=== PATIENT | male | born 1940 | race Two or more races ===

== ENCOUNTER 2021-10-18 20:32 | Emergency (ER) | payer OTHER ==
[~2021-10-18] VITALS: Ht 165.1 cm; Wt 77.1 kg
--- NOTE | 2021-10-18 20:55 | NUR ---
PT BIBRA C/O LEFT EYE BROW LACERATION. PT [id number] BREATHING EVENLY AND UNLABORED. PER PT, HE HAD BEEN DRINKING AND TRIPPED AND FELL, HITTING THE GROUND AND CUTTING HIS LEFT EYEBEOW. UPON ASSESSMENT, PT HAS THREE PARALLEL LACERATIONS ABOVE LEFT EYEBROW. PT ATTACHED TO MONITOR AND POX. PT GIVEN BLANKET AND CALL LIGHT WITHIN REACH
--- NOTE | 2021-10-18 21:15 | NUR ---
EMT AT BEDSIDE FOR WOUND CARE
[2021-10-18] MEDS ORDERED: TDAP [DIPH/PERTUSSIS/TET] 0.5 ML VIAL IM ONE ×2 (22:30→23:20)
--- NOTE | 2021-10-18 22:30 | NUR ---
TAKEN TO CT
[2021-10-18] MEDS ORDERED: LIDOCAINE 1%-EPI 1:100,000 20 ML VIAL ONE (23:20)
--- NOTE | 2021-10-18 23:33 | NUR ---
PA AT BEDSIDE FOR PROCEDURE
[2021-10-18 23:40] LABS: BASOPHILS % (AUTO) 0.7 % (0.0-2.0); EOSINOPHILS % (AUTO) 7.2 % (0.0-6.0); HEMATOCRIT 40 % (39-51); HEMOGLOBIN 13.3 g/dL (13.5-17.5); LYMPHOCYTES # (AUTO) 2.5 K/uL (0.8-4.8); LYMPHOCYTES % (AUTO) 37.3 % (20.0-44.0); MEAN CORPUSCULAR HGB CONC 33 g/dl (31.0-36.0); MEAN CORPUSCULAR VOLUME 93 fL (80-96); MONOCYTES # (AUTO) 0.7 K/uL (0.1-1.30); MONOCYTES % (AUTO) 9.9 % (2.0-12.0); NEUTROPHILS # (AUTO) 3.1 K/uL (1.8-8.9); NEUTROPHILS % (AUTO) 44.9 % (43.0-81.0); PLATELET COUNT (AUTO) 304 K/uL (150-450); WHITE BLOOD COUNT (AUTO) 6.8 K/uL (4.3-11.0)
[2021-10-18 23:53] LABS: CALCIUM, SERUM 8.5 mg/dL (8.5-10.1); POTASSIUM 4.1 mmol/L (3.5-5.1)
--- NOTE | 2021-10-19 01:59 | NUR ---
Patient discharged to home in stable condition. Written and verbal after care instructions given. Patient verbalizes understanding of instruction. Pt ambulatory with a steady gait, daughter picked up pt
[2021-10-19 02:13] VITALS: BP 122/82
== END 2021-10-19 01:50 | disposition home or self-care (01) ==
LOC: ER 20:37
DX: S01.81XA Laceration without foreign body of other part of head, initial encounter (principal); F10.129 Alcohol abuse with intoxication, unspecified; Z60.2 Problems related to living alone; W01.0XXA Fall on same level from slipping, tripping and stumbling without subsequent striking against object, initial encounter; Y93.89 Activity, other specified; Y92.89 Other specified places as the place of occurrence of the external cause; Y99.8 Other external cause status; Y90.6 Blood alcohol level of 120-199 mg/100 ml
CPT/HCPCS: 12015; 36415; 70450; 70486; 72125; 80048; 80320; 85025; 90471; 90715; 99284; A6403; J3490; G0480